=== PATIENT | female | born 1980 | race Caucasian/White ===

== ENCOUNTER 2023-02-06 16:15 | Emergency (ER) | payer OTHER, MEDICAID ==
--- NOTE | 2023-02-06 16:26 | ERPHSYRPT ---
- History of Present Illness Time Seen by Provider: 02/06/23 16:25 Historian: patient, EMS Exam Limitations: no limitations Physician History: This is a morbidly obese 42-year-old white female who approximately 7 days ago, underwent a section and delivered a child. This was performed through a Pfannenstiel incision. Patient had the melyssa removed yesterday. Today, there was at least skin dehiscence and a large amount of serosanguineous fluid flowed through the opening in the skin that was held together with Steri-Strips. That opening is approximately left of the midline. Patient states she has a mild amount of pain and does not want any pain medicine at this time. Timing/Duration: today Activities at Onset: none Quality: sharpness Abdominal Pain Onset Location: other (Pfannenstiel incision) Severity of Pain-Max: mild Severity of Pain-Current: mild Modifying Factors: Improves With: nothing Associated Symptoms: denies symptoms Previous symptoms: no prior history, no recent treatment Allergies/Adverse Reactions: Penicillins Allergy (Severe, Verified 02/06/23 16:34) Anaphylactic Reaction Home Medications: Aspirin EC 81 mg [Ecotrin 81 mg] 81 mg PO DAILY 02/06/23 [History] Pnv No.103/Folic/Om3s/Fish Oil [ Gummies] 1 tab PO DAILY 02/06/23 [History] Travel Risk - International Travel Have you traveled outside of the country in past 3 weeks: No - Coronavirus Screening Are you exhibiting any of the following symptoms?: No Close contact with a COVID-19 positive Pt in past 14-21 Days: No - Review of Systems Constitutional: No Symptoms Eyes: No Symptoms Ears, Nose, & Throat: No Symptoms Respiratory: No Symptoms Cardiac: No Symptoms Abdominal/Gastrointestinal: Abdominal Pain (At the Pfannenstiel incision site) Genitourinary Symptoms: No Symptoms Musculoskeletal: No Symptoms Skin: Other (Skin dehiscence just to the left of midline Pfannenstiel incision) Neurological: No Symptoms Psychological: No Symptoms Endocrine: No Symptoms Hematologic/Lymphatic: No Symptoms Immunological/Allergic: No Symptoms All Other Systems: Reviewed and Negative - Past Medical History Pertinent Past Medical History: Yes - Past Surgical History Past Surgical History: Yes - Nursing Vital Signs Nursing Vital Signs: Initial Vital Signs Temperature 97.8 F 02/06/23 16:19 Pulse Rate 98 H 02/06/23 16:19 Respiratory Rate 24 02/06/23 16:19 Blood Pressure 123/87 02/06/23 16:19 O2 Sat by Pulse Oximetry 98 02/06/23 16:19 Pain Scale Pain Intensity 7 - Physical Exam General Appearance: no apparent distress, alert, anxiety, obese Eye Exam: PERRL/EOMI, eyes nml inspection Ears, Nose, Throat Exam: normal ENT inspection, moist mucous membranes Neck Exam: normal inspection, non-tender, supple, full range of motion Respiratory Exam: normal breath sounds, lungs clear, airway intact, No chest tenderness, No respiratory distress Cardiovascular Exam: regular rate/rhythm, normal heart sounds, normal peripheral pulses Gastrointestinal/Abdomen Exam: soft, normal bowel sounds, No tenderness Pelvic Exam: not done Rectal Exam: not done Back Exam: normal inspection, normal range of motion, No CVA tenderness, No vertebral tenderness Extremity Exam: normal inspection, normal range of motion, pelvis stable Neurologic Exam: alert, oriented x 3, cooperative, grinder tender II-XII nml as tested, normal mood/affect, nml cerebellar function, nml station & gait, sensation nml Skin Exam: other (Short segment of, approximately 3 to 4 cm to the left midline Pfannenstiel incision skin dehiscence. Serosanguineous fluid present) Lymphatic Exam: No adenopathy SpO2 Interpretation: normal O2 Delivery: Room Air - Course Nursing assessment & vital signs reviewed: Yes Ordered Tests: Active Orders 24 hr Category Date Time Status ABDOMEN AND PELVIS W/0 CONTRAS [CT] Stat Exams 02/06/23 16:27 Completed CBC W DIFF Stat Lab 02/06/23 16:25 Completed Lab/Rad Data: Laboratory Result Diagrams 02/06/23 16:25 Laboratory Results 02/06/23 Range/Units 16:25 WBC 7.6 (4.0-10.5) x10^3/uL RBC 3.00 L (4.1-5.4) x10^6/uL Hgb 8.5 L (12.0-16.0) g/dL Hct 26.7 L (35-47) % MCV 89.0 (78-100) fL MCH 28.3 (26-32) pg MCHC 31.8 L (32-36) g/dL RDW 14.6 H (11.5-14.0) % Plt Count 291 (150-450) x10^3/uL MPV 8.7 (7.5-11.0) fL Gran % 69.0 H (36.0-66.0) % Immature Gran % (Auto) 1.0 H (0.00-0.4) % Nucleat RBC Rel Count 0.0 (0.00-0.1) % Eos # (Auto) 0.22 (0-0.5) x10^3/uL Immature Gran # (Auto) 0.08 H (0.00-0.03) x10^3u/L Absolute Lymphs (auto) 1.32 (1.0-4.6) x10^3/uL Absolute Monos (auto) 0.71 (0.0-1.3) x10^3/uL Absolute Nucleated RBC 0.00 (0.00-0.01) x10^3u/L Lymphocytes % 17.3 L (24.0-44.0) % Monocytes % 9.3 (0.0-12.0) % Eosinophils % 2.9 (0.00-5.0) % Basophils % 0.5 (0.0-0.4) % Absolute Granulocytes 5.25 (1.4-6.9) x10^3/uL Basophils # 0.04 (0-0.4) x10^3/uL - Progress Progress Note: 02/06/23 16:32 This patient's medical issue is 1 of moderate complexity. Level complexity in the workup performed is based on review of the patient's past medical history, review the patient's medication list, review the patient's drug allergy list, history of present illness and physical findings on examination. This patient will undergo a CBC and a CAT scan of the abdomen pelvis. What we are looking for here is the degree of anemia if present. Also we were trying to determine if the dehiscence is at the skin level or the skin and fascial level. We are going to perform a CT scan of the abdomen pelvis without contrast. 02/06/23 17:[address] scan of the abdomen pelvis without contrast is limited secondary to body habitus. The lower abdominal wall shows postsurgical changes without focal solid/cystic soft tissue mass, abnormal fluid collection or hernia. There is no evidence of any ventral or inguinal hernia present. Counseled pt/family regarding: lab results, diagnosis, need for follow-up, rad results Medical Desision Making - Diagnostic Testing Diagnostic test were ordered, analyzed, and reviewed by me: Yes Radiological Interpretation: Reviewed by me, Teleradiologist Report - Risk of complications Low Risk: Low risk of morbidity from additional dx testing or treatment - Departure Departure Disposition: Home Clinical Impression: Postoperative dehiscence of skin wound, anemia Condition: Stable Critical Care Time: No Referrals: OBED SOL MD [ACTIVE STAFF] - Follow up/PCP as directed Additional Instructions: Wear your abdominal binder. Call your head librarian tomorrow morning to make arrangements for follow-up appointment to be seen tomorrow, 02/07/2023. Take your medication as prescribed. You may get up and walk and move around to use the restroom. However, minimize your walking and lifting greater than 10 pounds until after you see your head librarian who will give you further instructions. Drink plenty of fluids and take your vitamin with iron.
[2023-02-06 16:43] VITALS: RESP 24
--- NOTE | 2023-02-06 17:02 | XRAY ---
Indication: Fascial dehiscence. Status post section 7 days. Multiple contiguous axial images obtained through the abdomen and pelvis without contrast. Comparison: None Patient body habitus limits exam with incomplete evaluation of the left abdomen/pelvis. Lung bases demonstrates minimal subsegmental atelectasis/scarring. Heart not enlarged. Visualized infraumbilical abdominal wall demonstrates diffuse subcutaneous induration presumed from recent surgery. No focal solid/cystic soft tissue mass or abnormal fluid collection. No ventral or inguinal hernias. Stomach and noncontrasted bowel loops appear nonobstructed with normal appendix. Prominent uterus from recent gravid status. No free fluid/air. 24.3 cm fatty hepatomegaly and 16.4 cm splenomegaly. Remaining liver, gallbladder, pancreas, spleen, adrenal glands, kidneys, ureters, bladder, uterus, and aorta are unremarkable for noncontrast exam. Osseous structures intact with mild lower thoracic degenerative changes. Impression: 1. Limited exam due to patient body habitus. 2. Lower abdominal wall postsurgical changes without focal solid/cystic soft tissue mass, abnormal fluid collection, or hernia. 3. Fatty hepatomegaly and splenomegaly.
[2023-02-06 17:13] LABS: Absolute Neutrophil Ct (ANC) 5.25 x10^3/uL (1.4-6.9); BASOPHIL % 0.5 % (0.0-0.4); Basophil (Absolute #) 0.04 x10^3/uL (0-0.4); Eosinophil % 2.9 % (0.00-5.0); Eosinophil (Absolute #) 0.22 x10^3/uL (0-0.5); Hematocrit 26.7 % (35-47); Hemoglobin 8.5 g/dL (12.0-16.0); IMMATURE GRAN # 0.08 x10^3u/L (0.00-0.03); Lymphocyte (Absolute #) 1.32 x10^3/uL (1.0-4.6); Lymphocytes % 17.3 % (24.0-44.0); Mean Corpuscular Hemoglobin 28.3 pg (26-32); Mean Corpuscular Hgb Concent. 31.8 g/dL (32-36); Mean Platelet Volume 8.7 fL (7.5-11.0); Monocyte (Absolute #) 0.71 x10^3/uL (0.0-1.3); Monocytes % 9.3 % (0.0-12.0); Platelet Count 291 x10^3/uL (150-450); Red Cell Distribution Width 14.6 % (11.5-14.0); White Blood Count 7.6 x10^3/uL (4.0-10.5)
[2023-02-06 17:39] VITALS: BP 126/86; PULSE 88; TEMP 98.2; O2SAT 97
== END 2023-02-06 17:57 | disposition home or self-care (01) ==
LOC: ED 16:15
DX: O90.0 Disruption of cesarean delivery wound (principal); O90.81 Anemia of the puerperium
CPT/HCPCS: 36415; 74176; 85025; 99283